=== PATIENT | female | born 1970 | race Caucasian/White ===

== ENCOUNTER 2019-09-25 21:15 | Emergency (ER) | payer BC ==
[2019-09-25] MEDS ORDERED: MAG HYDROX/AL HYDROX/SIMETH 30 ML, HYOSCYAMINE ELIXIR 10 ML, LIDOCAINE VISCOUS 2% 10 ML PO STA ×3 (21:34)
[2019-09-25] MEDS ORDERED: MORPHINE SULFATE 4 MG/ML SYRINGE IV STA (21:34)
--- NOTE | 2019-09-25 21:37 | ED ---
General Adult HPI <Cris Desouzaica P - Last Filed: 09/26/19 04:36> - General Source: patient Mode of arrival: wheelchair Limitations: no limitations <Jose Bravo D - Last Filed: 09/26/19 15:15> - General Chief complaint: Chest Pain Stated complaint: Chest pain Time Seen by Provider: 09/25/19 21:28 - History of Present Illness Initial comments: Dictation was produced using [employer] dictation software. please excuse any grammatical, word or spelling errors. This patient was cared for during a federal and state declared state of emergency secondary to Covid 19 Chief Complaint: 49-year-old female presents with epigastric pain. History of Present Illness: Patient is a 49-year-old female. Back in February she had bariatric surgery done at [facility] by Dr. Cedeño. Patient states that after her initial bariatric surgery she had a similar presentation as today. Patient states that today she was putting her daughter to bed when all of a sudden she developed acute onset epigastric pain. Patient states that she had similar episode after the bariatric surgery back in February. Patient complains of a twisting sensation in her epigastric region. She reports that they did not exactly figure out what causes patient's symptoms. She hasn't tried to eat since the onset of her symptoms. States that the pain is in the epigastric area and radiates to the back. The ROS documented in this emergency department record has been reviewed and confirmed by me. Those systems with pertinent positive or negative responses have been documented in the HPI. All other systems are other negative and/or noncontributory. PHYSICAL EXAM: General Impression: Alert and oriented x3, acute distress secondary to pain, mildly diaphoretic HEENT: Normocephalic atraumatic, extra-ocular movements intact, pupils equal and reactive to light bilaterally, mucous membranes moist. Cardiovascular: Heart regular rate and rhythm Chest: Able to complete full sentences, no retractions, no tachypnea Abdomen: abdomen soft, tenderness to palpation of the epigastric area, non- distended, no organomegaly Musculoskeletal: Pulses present and equal in all extremities, no peripheral edema Motor: no focal deficits noted Neurological: CN II-XII grossly intact, no focal motor or sensory deficits noted Skin: Intact with no visualized rashes Psych: Normal affect and mood ED course: 49-year-old female presents with severe acute onset epigastric abdominal pain. Patient states she has a history of bariatric surgery. She explains similar symptoms in the past secondary to her bariatric procedure. As upon arrival shows respiratory rate 26, rest of vital signs within acceptable limits. EKG does not show any signs of ischemia or infarction. Laboratory evaluation obtained. No leukocytosis. Hemoglobin 11.2. Metabolic panel is unremarkable. No gap acidosis however there is lactic acidosis of 2.5. Rest of labs are unremarkable.Patient reevaluated at bedside still having some abdominal pain. Patient care was signed out to Dr. Desouza for follow-up of CT. EKG interpretation: Ventricular rate 103, sinus tachycardia,. 136, QRS 80, QTc 463. No MO prolongation, no QTC prolongation, no ST or T-wave changes noted. Overall, this EKG is unremarkable (Jose Bravo) - Related Data Home Medications Medication Instructions Recorded Confirmed DULoxetine HCL [Cymbalta] 60 mg PO DAILY 09/25/19 09/25/19 Meclizine HCl 25 mg PO TID PRN 09/25/19 09/25/19 Thyroid,Pork [[facility] Thyroid] 120 mg PO DAILY 09/25/19 09/25/19 Previous Rx's Medication Instructions Recorded Pantoprazole Sodium [Protonix] 40 mg PO BID #60 tablet. 09/26/19 Pantoprazole Sodium [Protonix] 40 mg PO BID #60 tablet. 09/26/19 Sucralfate [Carafate] 1 gm PO ACHS #1 bottle 09/26/19 Sucralfate [Carafate] 1 gm PO ACHS #1 bottle 09/26/19 Allergies Allergy/AdvReac Type Severity Reaction Status Date / Time pseudoephedrine Allergy Unknown Verified 09/25/19 22:24 sulfamethoxazole Allergy Rash/Hives Verified 09/25/19 22:24 [From Bactrim] trimethoprim [From Bactrim] Allergy Rash/Hives Verified 09/25/19 22:24 Review of Systems ROS Other: All systems not noted in ROS Statement are negative. <Marilyn Desouza - Last Filed: 09/26/19 04:36> ROS Other: All systems not noted in ROS Statement are negative. <Jose Bravo - Last Filed: 09/26/19 15:15> ROS Statement: Those systems with pertinent positive or pertinent negative responses have been documented in the HPI. Past Medical History Past Medical History: No Reported History History of Any Multi-Drug Resistant Organisms: None Reported Past Surgical History: Bariatric Surgery, Section Additional Past Surgical History / Comment(s): gastric sleeve, Past Psychological History: No Psychological Hx Reported Smoking Status: Never smoker Past Alcohol Use History: None Reported Past Drug Use History: None Reported <Jose Bravo - Last Filed: 09/26/19 15:15> General Exam Limitations: no limitations <Jose Bravo - Last Filed: 09/26/19 15:15> Course Vital Signs 09/25/19 09/25/19 09/26/19 21:16 21:30 00:40 Temperature 98.4 F 97.9 F Pulse Rate 100 84 87 Respiratory 26 H 16 18 Rate Blood Pressure 116/58 124/73 122/70 O2 Sat by Pulse 100 100 99 Oximetry Medical Decision Making - Lab Data Result diagrams: 09/25/19 21:39 09/25/19 21:39 <Marilyn Desouza - Last Filed: 09/26/19 04:36> - Lab Data Result diagrams: 09/25/19 21:39 09/25/19 21:39 <Jose Bravo - Last Filed: 09/26/19 15:15> - Medical Decision Making Patient care was signed out to me by Dr. Bravo. 49-year-old female with a history of bariatric surgery presented the ER today with epigastric abdominal pain. Labs are relatively unremarkable the time of sign out computed tomography scan was pending. Computed tomography scan resulted with no acute findings. These results were discussed with the patient who expresses relief, she reports that her pain is resolved she is comfortable with the plan for discharge home. Patient now does admit that she discontinued her Protonix and Carafate and suspects that she needs to resume these. Advised I will prescribe both of these for her today. Patient agreeable. Patient has established follow-up with her surgeon. All questions pertaining care were answered return parameters were discussed patient was discharged home in stable condition. (Marilyn Desouza) - Lab Data Lab Results 07/13/20 07/13/20 07/13/20 Range/Units 21:39 21:39 21:39 WBC 7.0 (3.8-10.6) k/uL RBC 4.43 (3.80-5.40) m/uL Hgb 11.2 L (11.4-16.0) gm/dL Hct 35.1 (34.0-46.0) % MCV 79.4 L (80.0-100.0) fL MCH 25.4 (25.0-35.0) pg MCHC 32.0 (31.0-37.0) g/dL RDW 15.9 H (11.5-15.5) % Plt Count 279 (150-450) k/uL Neutrophils % 57 % Lymphocytes % 33 % Monocytes % 5 % Eosinophils % 2 % Basophils % 1 % Neutrophils # 4.0 (1.3-7.7) k/uL Lymphocytes # 2.3 (1.0-4.8) k/uL Monocytes # 0.4 (0-1.0) k/uL Eosinophils # 0.1 (0-0.7) k/uL Basophils # 0.1 (0-0.2) k/uL Hypochromasia Slight Sodium 136 L (137-145) mmol/L Potassium 3.9 (3.5-5.1) mmol/L Chloride 103 (98-107) mmol/L Carbon Dioxide 23 (22-30) mmol/L Anion Gap 10 mmol/L BUN 14 (7-17) mg/dL Creatinine 0.88 (0.52-1.04) mg/dL Est GFR (CKD-EPI)AfAm >90 (>60 ml/min/1.73 sqM) Est GFR (CKD-EPI)NonAf 78 (>60 ml/min/1.73 sqM) Glucose 134 H (74-99) mg/dL Lactic Ac Sepsis Rflx Plasma Lactic Acid Niko 2.5 H* (0.7-2.0) mmol/L Calcium 9.3 (8.4-10.2) mg/dL Total Bilirubin 0.3 (0.2-1.3) mg/dL AST 31 (14-36) U/L ALT 20 (4-34) U/L Alkaline Phosphatase 56 (38-126) U/L Troponin I (0.000-0.034) ng/mL Total Protein 6.9 (6.3-8.2) g/dL Albumin 4.6 (3.5-5.0) g/dL Lipase 291 (23-300) U/L Urine Color Urine Appearance (Clear) Urine pH (5.0-8.0) Ur Specific [place] (1.001-1.035) Urine Protein (Negative) Urine Glucose (UA) (Negative) Urine Ketones (Negative) Urine Blood (Negative) Urine Nitrite (Negative) Urine Bilirubin (Negative) Urine Urobilinogen (<2.0) mg/dL Ur Leukocyte Esterase (Negative) Urine HCG, Qual (Not Detectd) 09/25/19 09/25/19 09/25/19 Range/Units 21:39 22:25 22:57 WBC (3.8-10.6) k/uL RBC (3.80-5.40) m/uL Hgb (11.4-16.0) gm/dL Hct (34.0-46.0) % MCV (80.0-100.0) fL MCH (25.0-35.0) pg MCHC (31.0-37.0) g/dL RDW (11.5-15.5) % Plt Count (150-450) k/uL Neutrophils % % Lymphocytes % % Monocytes % % Eosinophils % % Basophils % % Neutrophils # (1.3-7.7) k/uL Lymphocytes # (1.0-4.8) k/uL Monocytes # (0-1.0) k/uL Eosinophils # (0-0.7) k/uL Basophils # (0-0.2) k/uL Hypochromasia Sodium (137-145) mmol/L Potassium (3.5-5.1) mmol/L Chloride (98-107) mmol/L Carbon Dioxide (22-30) mmol/L Anion Gap mmol/L BUN (7-17) mg/dL Creatinine (0.52-1.04) mg/dL Est GFR (CKD-EPI)AfAm (>60 ml/min/1.73 sqM) Est GFR (CKD-EPI)NonAf (>60 ml/min/1.73 sqM) Glucose (74-99) mg/dL Lactic Ac Sepsis Rflx Y Plasma Lactic Acid Niko (0.7-2.0) mmol/L Calcium (8.4-10.2) mg/dL Total Bilirubin (0.2-1.3) mg/dL AST (14-36) U/L ALT (4-34) U/L Alkaline Phosphatase (38-126) U/L Troponin I <0.012 (0.000-0.034) ng/mL Total Protein (6.3-8.2) g/dL Albumin (3.5-5.0) g/dL Lipase (23-300) U/L Urine Color Colorless Urine Appearance Clear (Clear) Urine pH 8.5 H (5.0-8.0) Ur Specific [place] 1.004 (1.001-1.035) Urine Protein Negative (Negative) Urine Glucose (UA) Negative (Negative) Urine Ketones Negative (Negative) Urine Blood Negative (Negative) Urine Nitrite Negative (Negative) Urine Bilirubin Negative (Negative) Urine Urobilinogen <2.0 (<2.0) mg/dL Ur Leukocyte Esterase Negative (Negative) Urine HCG, Qual (Not Detectd) 09/25/19 Range/Units 22:57 WBC (3.8-10.6) k/uL RBC (3.80-5.40) m/uL Hgb (11.4-16.0) gm/dL Hct (34.0-46.0) % MCV (80.0-100.0) fL MCH (25.0-35.0) pg MCHC (31.0-37.0) g/dL RDW (11.5-15.5) % Plt Count (150-450) k/uL Neutrophils % % Lymphocytes % % Monocytes % % Eosinophils % % Basophils % % Neutrophils # (1.3-7.7) k/uL Lymphocytes # (1.0-4.8) k/uL Monocytes # (0-1.0) k/uL Eosinophils # (0-0.7) k/uL Basophils # (0-0.2) k/uL Hypochromasia Sodium (137-145) mmol/L Potassium (3.5-5.1) mmol/L Chloride (98-107) mmol/L Carbon Dioxide (22-30) mmol/L Anion Gap mmol/L BUN (7-17) mg/dL Creatinine (0.52-1.04) mg/dL Est GFR (CKD-EPI)AfAm (>60 ml/min/1.73 sqM) Est GFR (CKD-EPI)NonAf (>60 ml/min/1.73 sqM) Glucose (74-99) mg/dL Lactic Ac Sepsis Rflx Plasma Lactic Acid Niko (0.7-2.0) mmol/L Calcium (8.4-10.2) mg/dL Total Bilirubin (0.2-1.3) mg/dL AST (14-36) U/L ALT (4-34) U/L Alkaline Phosphatase (38-126) U/L Troponin I (0.000-0.034) ng/mL Total Protein (6.3-8.2) g/dL Albumin (3.5-5.0) g/dL Lipase (23-300) U/L Urine Color Urine Appearance (Clear) Urine pH (5.0-8.0) Ur Specific [place] (1.001-1.035) Urine Protein (Negative) Urine Glucose (UA) (Negative) Urine Ketones (Negative) Urine Blood (Negative) Urine Nitrite (Negative) Urine Bilirubin (Negative) Urine Urobilinogen (<2.0) mg/dL Ur Leukocyte Esterase (Negative) Urine HCG, Qual Not Detected (Not Detectd) Disposition Is patient prescribed a controlled substance at d/c from ED?: No <Marilyn Desouza P - Last Filed: 09/26/19 04:36> <Jose Bravo - Last Filed: 09/26/19 15:15> Clinical Impression: Epigastric pain Disposition: HOME SELF-CARE Additional Instructions: Resume Protonix and Carafate Contact your surgeon tomorrow for follow up Return to the ER for any worsening or development of any new or concerning symptoms Prescriptions: Sucralfate [Carafate] 1 gm PO ACHS #1 bottle Sucralfate [Carafate] 1 gm PO ACHS #1 bottle Pantoprazole Sodium [Protonix] 40 mg PO BID #60 tablet. Pantoprazole Sodium [Protonix] 40 mg PO BID #60 tablet. Referrals: Braydon Pate DO [Primary Care Provider] - 1-2 days
[2019-09-25 21:51] LABS: Basophils # (A) 0.1 k/uL (0-0.2); Basophils % (A) 1 %; Eosinophils # (A) 0.1 k/uL (0-0.7); Eosinophils % (A) 2 %; HCT 35.1 % (34.0-46.0); HGB 11.2 gm/dL (11.4-16.0); Hypochromasia Slight; Lymphocytes # (A) 2.3 k/uL (1.0-4.8); Lymphocytes % (A) 33 %; MCH 25.4 pg (25.0-35.0); MCV 79.4 fL (80.0-100.0); Mean Platelet Volume 8.6; Monocytes # (A) 0.4 k/uL (0-1.0); Monocytes % (A) 5 %; Neutrophils % (A) 57 %; Platelet Count 279 k/uL (150-450); RBC 4.43 m/uL (3.80-5.40); RDW 15.9 % (11.5-15.5)
[2019-09-25 21:57] LABS: ALT 20 U/L (4-34); AST 31 U/L (14-36); African American GFR (CKD) >90 (>60 ml/min/1.73 sqM); Albumin 4.6 g/dL (3.5-5.0); Alkaline Phosphatase 56 U/L (38-126); Anion Gap 10 mmol/L; Blood Urea Nitrogen 14 mg/dL (7-17); Calcium 9.3 mg/dL (8.4-10.2); Carbon Dioxide 23 mmol/L (22-30); Chloride 103 mmol/L (98-107); Glucose 134 mg/dL (74-99); Non-African American GFR(CKD) 78 (>60 ml/min/1.73 sqM); Potassium 3.9 mmol/L (3.5-5.1); Sodium 136 mmol/L (137-145); Total Bilirubin 0.3 mg/dL (0.2-1.3); Total Protein 6.9 g/dL (6.3-8.2)
--- NOTE | 2019-09-25 22:06 | XR ---
EXAMINATION TYPE: XR KUB DATE OF EXAM: 09/25/2019 10:02 PM CLINICAL HISTORY: Epigastric pain up into the chest. History of gastric sleep 2018.. TECHNIQUE: Two supine KUB images of the abdomen are obtained. COMPARISON: None. FINDINGS: Surgical changes epigastric region from gastric sleeve procedure. Scattered gas is seen in non-distended small bowel loops. Gas is seen in non-distended colon and rectum. There is no viscerome eduardo or abnormal calcification appreciated. The lung bases are clear and the osseous structures are i ntact. IMPRESSION: Overall nonobstructive bowel gas pattern.
[2019-09-25] MEDS ORDERED: HYDROmorphone 1 MG/ML 1 ML SYRINGE IVP STA (22:48)
[2019-09-25 23:24] LABS: Appearance,Urine Clear (Clear); Bilirubin,Urine Negative (Negative); Blood,Urine Negative (Negative); Color,Urine Colorless; Glucose,Urine (UA) Negative (Negative); Ketones,Urine Negative (Negative); Leukocyte Esterase,Urine Negative (Negative); Nitrite,Urine Negative (Negative); PH, Urine 8.5 (5.0-8.0); Protein,Urine Negative (Negative); Specific Gravity,Urine 1.004 (1.001-1.035); Urobilinogen,Urine <2.0 mg/dL (<2.0)
--- NOTE | 2019-09-25 23:49 | CT ---
EXAMINATION TYPE: CT abdomen pelvis w con DATE OF EXAM: 09/25/2019 COMPARISON: None HISTORY: pain Epigastric pain. Gastric sleeve surgery. CT DLP: 1058.4 mGycm Automated exposure control for dose reduction was used. CONTRAST: Performed with IV Contrast, patient injected with 100 mL of Isovue 300. Images obtained from the diaphragm to the floor the pelvis with IV contrast. FINDINGS: Lung bases are clear. There is no pleural effusion. Heart size is normal. There is surgical clips from gastric bariatric surgery. The bile ducts are not dilated. Gallbladder a ppears normal. There is no evidence of pancreatic mass. Spleen appears normal. There is no adrenal mass. Kidneys show satisfactory contrast opacification. There is no hydronephrosi s. Ureters are not dilated. There is no retroperitoneal adenopathy. Bladder distends smoothly. There is no inguinal hernia. There is no free fluid in the pelvis. Uterus is anteverted. The cul-de-sac is clear fluid. Lumbar vertebra have normal alignment. Disc spaces are fairly normal. There is no compression fractur e. The bony pelvis appears intact. Sacroiliac joints are intact. The ribs appear intact. There is no mesenteric edema. There is no ascites or free air. There is no evidence of a bowel obstru ction. Appendix is adjacent to the sacrum and appears normal. IMPRESSION: Negative CT scan of the abdomen and pelvis. Gastric bariatric surgery noted.
[2019-09-26 00:42] VITALS: BP 122/70; PULSE 87; RESP 18; TEMP 97.9
== END 2019-09-26 00:42 | disposition home or self-care (01) ==
LOC: EC 21:15
DX: Z98.84 Bariatric surgery status (principal); Z88.2 Allergy status to sulfonamides; Z88.8 Allergy status to other drugs, medicaments and biological substances; R10.13 Epigastric pain
CPT/HCPCS: 36415; 80053; 83605; 83690; 84484; 85025; 81003; 81025; 74018; 74177; 99285; 96374; 96375; J2270; J1170; Q9967